=== PATIENT | female | born 1995 | race Caucasian/White ===

== ENCOUNTER 2018-09-01 21:50 | Inpatient (IN) | payer OTHER ==
[~2018-09-01] VITALS: Ht 162.6 cm; Wt 2.7 kg
[~2018-09-01 21:50] MED LIST: NON ADHEREN1 BANDAGE TP
[2018-09-01] MEDS ORDERED: OBSTETRIX DHA1 EACH PO (22:40)
== END 2018-09-05 14:54 | disposition home or self-care (01) | DRG 786 ==
LOC: O/R 21:50 → LDR 21:50 → OB/GYN 21:50 → O/R 09-02 13:18 → OB/GYN 09-02 15:11
PROVIDERS: ADMIT Specialist
PROC: 4A0HXFZ Measurement of Products of Conception, Cardiac Rhythm, External Approach (ICD-10-PCS; 2018-09-02)
PROC: BW40ZZZ Ultrasonography of Abdomen (ICD-10-PCS; 2018-09-02)
PROC: BY4FZZZ Ultrasonography of Third Trimester, Single Fetus (ICD-10-PCS; 2018-09-02)
PROC: 10D00Z1 Extraction of Products of Conception, Low, Open Approach (ICD-10-PCS; principal; 2018-09-02 13:00)
DX: O76 Abnormality in fetal heart rate and rhythm complicating labor and delivery (principal); K83.1 Obstruction of bile duct; O26.613 Liver and biliary tract disorders in pregnancy, third trimester; Z3A.38 38 weeks gestation of pregnancy; Z37.0 Single live birth